=== PATIENT | female | born 2000 | race Hispanic/Latino ===

== ENCOUNTER 2018-01-26 17:13 | Emergency (ER) | payer MEDICAID, OTHER, SELFPAY ==
[2018-01-26 18:42] LABS: Bilirubin Negative (Negative); Blood, Urine Moderate (Negative); Glucose, Urine (Dipstick) Negative (Negative); Leukocyte Small (Negative); Nitrite Negative (Negative); Protein, Urine (Dipstick) Trace mg/dL (Neg-Trace); Urobilinogen 0.2 mg/dL (0.2-1.0); pH, Urine 6.5 (5.0-9.0)
[2018-01-26 18:44] LABS: Clarity CLEAR (Clear)
[2018-01-26 18:53] LABS: Bacteria/HPF 2+ HPF (None Seen); Hyaline Casts/LPF 0-3 HYALINE CAST LPF (0-3 Hyaline); WBC/HPF 21-50 HPF (0-3)
[2018-01-26 19:20] LABS: Pregnancy Test - Urine (BHCG) Negative (Negative); Pregu Control Bar Appear? YES (CONTROL BAR)
[2018-01-26 19:21] LABS: Pregu Control Background? CLEAR/WHITE (CLR/WHITE)
[2018-01-28 23:23] LABS: Chlamydia by PCR DETECTED (NotDetected); GC by PCR DETECTED (NotDetected)
--- NOTE | 2018-01-30 11:57 | EKG ---
Test Reason : SYNCOPE Blood Pressure : / mmHG Vent. Rate : 090 BPM Atrial Rate : 090 BPM P-R Int : 108 ms QRS Dur : 072 ms QT Int : 320 ms P-R-T Axes : -02 060 040 degrees QTc Int : 391 ms Sinus rhythm with short MD Otherwise normal ECG Confirmed by MATA JONES ([id number]), photo editor CARLOS COHEN ([id number]) on 01/30/2018 11:56:38 AM Referred By: Confirmed By:MATA JONES
== END 2018-01-26 19:52 | disposition home or self-care (01) ==
LOC: ERS 17:13
DX: N39.0 Urinary tract infection, site not specified (principal)
CPT/HCPCS: 81003; 81015; 81025; 87480; 87491; 87510; 87591; 87660; 93005

== ENCOUNTER 2018-10-03 08:21 | Emergency (ER) | payer SELFPAY ==
[2018-10-03] MEDS ORDERED: Ondansetron ODT 4 MG TAB ONE (08:32)
--- NOTE | 2018-10-03 09:23 | ULT ---
FEXAM: US Gallbladder RUQ CLINICAL HISTORY: Right upper quadrant abdominal pain. COMPARISON: None. FINDINGS: Liver:Normal echotexture without focal hepatic lesion. Bile ducts: No intrahepatic or extra hepatic biliary ductal dilatation is evident. The common bile me asured 4.2 mm. Gallbladder: Small mobile stones seen within the gallbladder neck Valle's sign:None Main portal vein:Patent with hepatopedal flow. Pancreas: Head and body appear normal; tail obscured by bowel gas. Right kidney: No pelvicalyceal dilatation. Right kidney measuring 10 x 4.7 x 4.9 cm in length. IMPRESSION: Cholelithiasis without sonographic evidence of acute cholecystitis
--- NOTE | 2018-10-03 09:29 | RAD ---
PORTABLE CHEST: Date: 10/03/18 HISTORY: Chest pain. HISTORY: Difficulty breathing, epigastric pain. FINDINGS: Heart size and mediastinum are within normal limits. Lungs are clear of infiltrates. No bony findings . IMPRESSION: No active intrathoracic disease. POS: [facility]
[2018-10-03 09:56] LABS: #Basophils 0.1 thou/uL (0.0-0.2); #Eosinphils 0.2 thou/uL (0.0-0.7); #Monocytes 0.7 thou/uL (0.11-0.59); #Neutrophils 7.4 thou/uL (1.40-6.50); %Eosinophils 1.5 % (0.0-10.0); %Lymphocytes 26.1 % (28.0-48.0); %Neutrophils 65.5 % (31.0-61.0); Hemoglobin 12.9 g/dL (12.0-16.0); Mean Corpuscular Volume 88.2 fL (78.0-98.0); Mean Platelet Volume 6.5 fL (7.4-10.4); Platelet Count 311 thou/uL (130-400); RBC Distribution Width 11.8 % (11.5-14.5); Red Blood Cell (RBC) Count 4.31 mill/uL (4.00-5.20); White Blood Cell (WBC) Count 11.3 thou/uL (4.8-10.8)
[2018-10-03 10:16] LABS: ALT (SGPT) 11 U/L (8-55); AST (SGOT) 18 U/L (5-34); Albumin 4.1 g/dL (3.5-5.0); Alkaline Phosphatase 89 U/L (40-150); Anion Gap 13 mmol/L (10-20); BUN (Urea Nitrogen) 11 mg/dL (7.0-18.7); Bilirubin, Total 0.2 mg/dL (0.2-1.2); Calc. Creatinine Clearance 0 mL/min (70-130); Calcium 9.4 mg/dL (7.8-10.44); Carbon Dioxide 24 mmol/L (22-29); Chloride 107 mmol/L (98-107); Estimated GFR-MDRD Greater than 90; Globulin 3.2 g/dL (2.4-3.5); Glucose 94 mg/dL (70-105); Lipase 11 U/L (8-78); Potassium 3.5 mmol/L (3.5-5.1); Protein, Total 7.3 g/dL (6.0-8.3); Sodium 140 mmol/L (136-145)
[2018-10-03 10:46] LABS: Bilirubin Negative (Negative); Blood, Urine Negative (Negative); Glucose, Urine (Dipstick) Negative (Negative); Leukocyte Negative (Negative); Nitrite Negative (Negative); Protein, Urine (Dipstick) Negative (Neg-Trace); Urobilinogen 0.2 mg/dL (0.2-1.0)
[2018-10-03 10:51] LABS: Clarity Clear (Clear); Specific Gravity, Urine 1.024 (1.002-1.036)
[2018-10-03 10:52] LABS: Pregnancy Test - Urine (BHCG) Negative (Negative); Pregu Control Background? CLEAR/WHITE (CLR/WHITE); Pregu Control Bar Appear? YES (CONTROL BAR); Specific Gravity 1.024 (1.002-1.036)
== END 2018-10-03 12:03 | disposition home or self-care (01) ==
LOC: ERS 08:21
DX: K80.20 Calculus of gallbladder without cholecystitis without obstruction (principal)
CPT/HCPCS: 36415; 71045; 76705; 80053; 81003; 81025; 83690; 84484; 85025; 93005; 96360; Q0162

== ENCOUNTER 2018-10-04 20:05 | Emergency (ER) | payer SELFPAY ==
[2018-10-04] MEDS ORDERED: Ondansetron ODT 8 MG TAB ONE (20:49)
[2018-10-04 21:05] LABS: #Basophils 0.1 thou/uL (0.0-0.2); #Eosinphils 0.1 thou/uL (0.0-0.7); #Lymphocytes 1.8 thou/uL (1.20-3.40); #Monocytes 0.5 thou/uL (0.11-0.59); #Neutrophils 5.7 thou/uL (1.40-6.50); %Eosinophils 0.8 % (0.0-10.0); %Lymphocytes 22.4 % (28.0-48.0); %Monocytes 6.6 % (0.0-4.0); %Neutrophils 69.3 % (31.0-61.0); Hemoglobin 12.5 g/dL (12.0-16.0); Mean Corpuscular Hemoglobin 29.7 pg (25.0-35.0); Mean Corpuscular Volume 87.4 fL (78.0-98.0); Mean Platelet Volume 6.3 fL (7.4-10.4); Platelet Count 282 thou/uL (130-400); RBC Distribution Width 11.6 % (11.5-14.5); Red Blood Cell (RBC) Count 4.21 mill/uL (4.00-5.20); White Blood Cell (WBC) Count 8.2 thou/uL (4.8-10.8)
[2018-10-04 21:27] LABS: ALT (SGPT) 11 U/L (8-55); AST (SGOT) 15 U/L (5-34); Albumin 3.9 g/dL (3.5-5.0); Alkaline Phosphatase 79 U/L (40-150); Anion Gap 10 mmol/L (10-20); BUN (Urea Nitrogen) 6 mg/dL (7.0-18.7); Bilirubin, Total 0.4 mg/dL (0.2-1.2); Calc. Creatinine Clearance 0 mL/min (70-130); Calcium 9.1 mg/dL (7.8-10.44); Carbon Dioxide 25 mmol/L (22-29); Chloride 104 mmol/L (98-107); Estimated GFR-MDRD Greater than 90; Globulin 3.3 g/dL (2.4-3.5); Glucose 93 mg/dL (70-105); Lipase 6 U/L (8-78); Potassium 3.7 mmol/L (3.5-5.1); Protein, Total 7.2 g/dL (6.0-8.3); Sodium 135 mmol/L (136-145)
== END 2018-10-04 21:48 | disposition home or self-care (01) ==
LOC: ERS 20:05
DX: R11.2 Nausea with vomiting, unspecified (principal); R19.7 Diarrhea, unspecified; Z79.899 Other long term (current) drug therapy
CPT/HCPCS: 36415; 80053; 83690; 85025; 99283

== ENCOUNTER 2019-05-16 09:53 | Emergency (ER) | payer BC, SELFPAY ==
[2019-05-16 10:45] LABS: #Basophils 0.1 thou/uL (0.0-0.2); #Eosinphils 0.1 thou/uL (0.0-0.7); #Monocytes 0.5 thou/uL (0.11-0.59); #Neutrophils 8.5 thou/uL (1.40-6.50); %Basophils 0.7 % (0.0-1.0); %Eosinophils 0.6 % (0.0-10.0); %Lymphocytes 17.9 % (28.0-48.0); %Monocytes 4.1 % (0.0-4.0); %Neutrophils 76.7 % (31.0-61.0); Hemoglobin 13.7 g/dL (12.0-16.0); Mean Corpuscular Hemoglobin 29.1 pg (25.0-35.0); Mean Corpuscular Volume 88.2 fL (78.0-98.0); Mean Platelet Volume 6.7 fL (7.4-10.4); Platelet Count 291 thou/uL (130-400); RBC Distribution Width 11.9 % (11.5-14.5); White Blood Cell (WBC) Count 11.1 thou/uL (4.8-10.8)
[2019-05-16] MEDS ORDERED: Lidocaine Viscous Sol 2% 15 ml UD Cup ONE (10:53)
[2019-05-16] MEDS ORDERED: Mag-Al 1200 mg/1200 mg/30 ML UDCUP ONE (10:53)
[2019-05-16 11:00] LABS: ALT (SGPT) 13 U/L (8-55); AST (SGOT) 12 U/L (5-34); Albumin 4.3 g/dL (3.5-5.0); Alkaline Phosphatase 87 U/L (40-100); Anion Gap 12 mmol/L (10-20); BUN (Urea Nitrogen) 8 mg/dL (7.0-18.7); Bilirubin, Total 0.3 mg/dL (0.2-1.2); Calc. Creatinine Clearance 0 mL/min (70-130); Calcium 9.4 mg/dL (7.8-10.44); Carbon Dioxide 26 mmol/L (22-29); Chloride 106 mmol/L (98-107); Estimated GFR-MDRD Greater than 90; Globulin 3.1 g/dL (2.4-3.5); Glucose 100 mg/dL (70-105); Lipase 11 U/L (8-78); Potassium 4.2 mmol/L (3.5-5.1); Protein, Total 7.4 g/dL (6.0-8.3); Sodium 140 mmol/L (136-145)
[2019-05-16 11:15] LABS: Bilirubin Negative (Negative); Blood, Urine Negative (Negative); Clarity Clear (Clear); Glucose, Urine (Dipstick) Normal (Negative); Leukocyte Negative Leu/uL (Negative); Nitrite Negative (Negative); Protein, Urine (Dipstick) Negative (Neg-Trace); Urobilinogen Normal mg/dL (Less than 2)
[2019-05-16 11:16] LABS: Pregnancy Test - Urine (BHCG) Negative (Negative); Pregu Control Background? CLEAR/WHITE (CLR/WHITE); Pregu Control Bar Appear? YES (CONTROL BAR)
== END 2019-05-16 13:07 | disposition home or self-care (01) ==
LOC: ERS 09:53
DX: R10.13 Epigastric pain (principal); N11.0 Nonobstructive reflux-associated chronic pyelonephritis
CPT/HCPCS: 36415; 80053; 81003; 81025; 83690; 85025; 99284

== ENCOUNTER 2019-06-12 17:04 | Emergency (ER) | payer SELFPAY ==
[2019-06-12 18:08] LABS: #Lymphocytes 1.8 thou/uL (1.20-3.40); #Monocytes 0.6 thou/uL (0.11-0.59); #Neutrophils 12.5 thou/uL (1.40-6.50); %Basophils 0.3 % (0.0-1.0); %Eosinophils 0.2 % (0.0-10.0); %Lymphocytes 12.1 % (28.0-48.0); %Monocytes 3.8 % (0.0-4.0); %Neutrophils 83.6 % (31.0-61.0); Hemoglobin 13.7 g/dL (12.0-16.0); Mean Corpuscular HGB CONC 33.7 g/dL (32.0-36.0); Mean Corpuscular Hemoglobin 29.2 pg (25.0-35.0); Mean Corpuscular Volume 86.7 fL (78.0-98.0); Mean Platelet Volume 6.6 fL (7.4-10.4); Platelet Count 347 thou/uL (130-400); RBC Distribution Width 11.6 % (11.5-14.5); White Blood Cell (WBC) Count 14.9 thou/uL (4.8-10.8)
[2019-06-12 18:27] LABS: Acetaminophen Less than 6.0 mcg/mL (10.0-30.0); Alcohol Less than 10 mg/dL (Less than 10); Salicylate Less than 8.0 mg/dL (15.0-30.0)
[2019-06-12 18:29] LABS: ALT (SGPT) 17 U/L (8-55); AST (SGOT) 17 U/L (5-34); Albumin 4.5 g/dL (3.5-5.0); Alkaline Phosphatase 87 U/L (40-100); Anion Gap 13 mmol/L (10-20); BUN (Urea Nitrogen) 8 mg/dL (7.0-18.7); Bilirubin, Total 0.5 mg/dL (0.2-1.2); CK (CPK) 129 U/L (29-168); Calc. Creatinine Clearance 0 mL/min (70-130); Calcium 9.9 mg/dL (7.8-10.44); Carbon Dioxide 25 mmol/L (22-29); Chloride 104 mmol/L (98-107); Estimated GFR-MDRD Greater than 90; Globulin 3.8 g/dL (2.4-3.5); Glucose 100 mg/dL (70-105); Potassium 3.7 mmol/L (3.5-5.1); Protein, Total 8.3 g/dL (6.0-8.3); Sodium 138 mmol/L (136-145)
[2019-06-12 19:41] LABS: Bilirubin Negative (Negative); Blood, Urine Negative (Negative); Clarity Clear (Clear); Glucose, Urine (Dipstick) Normal (Negative); Leukocyte Negative Leu/uL (Negative); Nitrite Negative (Negative); Protein, Urine (Dipstick) Negative (Neg-Trace); Urobilinogen Normal mg/dL (Less than 2)
[2019-06-12 19:42] LABS: Pregnancy Test - Urine (BHCG) Negative (Negative); Pregu Control Background? CLEAR/WHITE (CLR/WHITE); Pregu Control Bar Appear? YES (CONTROL BAR)
[2019-06-12 19:51] LABS: Amphetamine Not Detected (NotDetected); Barbiturates Screen Not Detected (NotDetected); Benzodiazepine Screen Not Detected (NotDetected); Cocaine Metabolite Screen Not Detected (NotDetected); Medtox Control Line Valid? VALID (VALID); Medtox Reader # READER 1; Methadone Not Detected (NotDetected); Methamphetamine Not Detected (NotDetected); Opiate Screen Not Detected (NotDetected); Oxycodone Screen Not Detected (NotDetected); Phencyclidine (PCP) Not Detected (NotDetected); THC/Cannabinoid Screen Detected (NotDetected); Tricyclic Screen Not Detected (NotDetected)
== END 2019-06-13 00:18 | disposition home or self-care (01) ==
LOC: ERS 17:04
DX: F43.9 Reaction to severe stress, unspecified (principal)
CPT/HCPCS: 36415; 80053; 80306; 80307; 81003; 81025; 82550; 84443; 85025; 93005

== ENCOUNTER 2019-10-11 11:21 | Emergency (ER) | payer BC ==
[2019-10-11 12:00] LABS: #Basophils 0.1 thou/uL (0.0-0.2); #Eosinphils 0.1 thou/uL (0.0-0.7); #Lymphocytes 2.2 thou/uL (1.20-3.40); #Monocytes 0.4 thou/uL (0.11-0.59); #Neutrophils 7.7 thou/uL (1.40-6.50); %Basophils 0.8 % (0.0-1.0); %Monocytes 3.9 % (0.0-10.0); %Neutrophils 73.3 % (42.0-75.0); Hemoglobin 13.7 g/dL (12.0-16.0); Mean Corpuscular HGB CONC 33.8 g/dL (32.0-36.0); Mean Corpuscular Hemoglobin 29.6 pg (27.0-31.0); Mean Corpuscular Volume 87.5 fL (78.0-98.0); Mean Platelet Volume 6.8 fL (7.4-10.4); Platelet Count 305 thou/uL (130-400); RBC Distribution Width 12.3 % (11.5-14.5); Red Blood Cell (RBC) Count 4.63 mill/uL (4.20-5.40); White Blood Cell (WBC) Count 10.4 thou/uL (4.8-10.8)
[2019-10-11 12:12] LABS: BHCG - Serum Negative (NEGATIVE); Pregs Control Background? CLEAR/WHITE (CLR/WHITE); Pregs Control Bar Appear? YES (CONTROL BAR)
[2019-10-11 12:14] LABS: ALT (SGPT) 21 U/L (8-55); AST (SGOT) 15 U/L (5-34); Alkaline Phosphatase 94 U/L (40-110); Anion Gap 10 mmol/L (10-20); BUN (Urea Nitrogen) 8 mg/dL (7.0-18.7); Bilirubin, Total 0.3 mg/dL (0.2-1.2); Calc. Creatinine Clearance 0 mL/min (70-130); Calcium 9.6 mg/dL (7.8-10.44); Carbon Dioxide 27 mmol/L (22-29); Chloride 105 mmol/L (98-107); Estimated GFR-MDRD Greater than 90; Globulin 3.6 g/dL (2.4-3.5); Glucose 102 mg/dL (70-105); Lipase 10 U/L (8-78); Potassium 5.1 mmol/L (3.5-5.1); Protein, Total 7.6 g/dL (6.0-8.3); Sodium 137 mmol/L (136-145)
--- NOTE | 2019-10-11 12:19 | ULT ---
EXAM: US Gallbladder RUQ CLINICAL HISTORY: Right upper quadrant pain. COMPARISON: 10/03/2018 FINDINGS: Pancreas: Obscured by bowel gas Liver:Normal hepatic parenchymal echotexture. No hepatic masses or intrahepatic biliary dilatation. T he contour of the hepatic margin is maintained. Right hepatic lobe: 15.8 cm Gallbladder: Echogenic focus with shadowing measuring at least 1.9 cm. Gallbladder wall is not thicke [place]. No pericholecystic fluid. Valle's sign:Negative Portal Vein: Patent. Appropriate directional flow Bile ducts: Common bile duct diameter 0.4 cm Right kidney: No hydronephrosis. Right kidney measures 3.7 x 5.1 x 10.0 cm in length. IMPRESSION: 1. Sonographic evidence of cholelithiasis without sonographic evidence of cholecystitis.
[2019-10-11 12:37] LABS: Bilirubin Negative (Negative); Blood, Urine Negative (Negative); Clarity Turbid (Clear); Glucose, Urine (Dipstick) Normal (Negative); Leukocyte 75 Leu/uL (Negative); Nitrite Negative (Negative); Protein, Urine (Dipstick) Negative (Neg-Trace); RBC/HPF 0-3 HPF (0-3); Urobilinogen Normal mg/dL (Less than 2)
[2019-10-11 12:44] LABS: Bacteria/HPF Rare-Few HPF (None Seen)
== END 2019-10-11 12:38 | disposition home or self-care (01) ==
LOC: ERS 11:21
DX: K80.80 Other cholelithiasis without obstruction (principal)
CPT/HCPCS: 36415; 76705; 80053; 81003; 81015; 83690; 84703; 85025

== ENCOUNTER 2020-10-11 06:04 | Emergency (ER) | payer BC ==
[2020-10-11] MEDS ORDERED: Haloperidol Lactate 5 MG/ML VIAL ONE (07:07)
[2020-10-11 07:14] LABS: Bacteria/HPF None Seen HPF (None Seen); Bilirubin Negative (Negative); Blood, Urine Trace (Negative); Clarity Clear (Clear); Glucose, Urine (Dipstick) Normal (Negative); Ketone, Urine Negative (Negative); Leukocyte Negative Leu/uL (Negative); Nitrite Negative (Negative); Protein, Urine (Dipstick) 30 mg/dL (Neg-Trace); RBC/HPF 0-3 HPF (0-3); Specific Gravity, Urine 1.032 (1.002-1.036); Urobilinogen Normal mg/dL (Less than 2); WBC/HPF 0-3 HPF (0-3); pH, Urine 6.5 (5.0-9.0)
[2020-10-11 07:15] LABS: Pregnancy Test - Urine (BHCG) Negative (Negative); Pregu Control Background? CLEAR/WHITE (CLR/WHITE); Pregu Control Bar Appear? YES (CONTROL BAR); Specific Gravity 1.032 (1.002-1.036)
[2020-10-11 07:17] LABS: ALT (SGPT) 17 U/L (8-55); AST (SGOT) 24 U/L (5-34); Alkaline Phosphatase 97 U/L (40-110); Anion Gap 16 mmol/L (10-20); BUN (Urea Nitrogen) 10 mg/dL (7.0-18.7); Bilirubin, Total 0.2 mg/dL (0.2-1.2); Calc. Creatinine Clearance 0 mL/min (70-130); Calcium 9.1 mg/dL (7.8-10.44); Carbon Dioxide 21 mmol/L (22-29); Chloride 107 mmol/L (98-107); Globulin 4.2 g/dL (2.4-3.5); Glucose 104 mg/dL (70-105); Potassium 5.1 mmol/L (3.5-5.1); Protein, Total 8.2 g/dL (6.0-8.3); Sodium 139 mmol/L (136-145)
[2020-10-11 07:50] LABS: #Basophils 0.1 thou/uL (0.0-0.2); #Eosinphils 0.1 thou/uL (0.0-0.7); #Monocytes 0.5 thou/uL (0.11-0.59); #Neutrophils 7.6 thou/uL (1.40-6.50); %Basophils 0.7 % (0.0-1.0); %Eosinophils 0.9 % (0.0-10.0); %Lymphocytes 19.3 % (21.0-51.0); %Monocytes 4.6 % (0.0-10.0); %Neutrophils 74.6 % (42.0-75.0); Hemoglobin 12.4 g/dL (12.0-16.0); Mean Corpuscular Hemoglobin 28.9 pg (27.0-31.0); Mean Corpuscular Volume 87.5 fL (78.0-98.0); Mean Platelet Volume 6.8 fL (7.4-10.4); Platelet Count 293 thou/uL (130-400); RBC Distribution Width 12.3 % (11.5-14.5); Red Blood Cell (RBC) Count 4.29 mill/uL (4.20-5.40); White Blood Cell (WBC) Count 10.2 thou/uL (4.8-10.8)
== END 2020-10-11 08:25 | disposition home or self-care (01) ==
LOC: ERS 06:04
DX: R11.2 Nausea with vomiting, unspecified (principal); K80.20 Calculus of gallbladder without cholecystitis without obstruction; F12.90 Cannabis use, unspecified, uncomplicated
CPT/HCPCS: 36415; 76705; 80053; 81003; 81015; 81025; 85025; 96374; J1630

== ENCOUNTER 2021-12-03 04:01 | Emergency (ER) | payer BC | END 2021-12-03 04:27 | LOC: ERS 04:01 | DX: Z02.89 Encounter for other administrative examinations (principal); T40.715A Adverse effect of cannabis, initial encounter | CPT/HCPCS: 99284 ==

== ENCOUNTER 2025-04-18 12:32 | Emergency (ER) | payer SELFPAY ==
[2025-04-18] MEDS ORDERED: Ondansetron PF 4 MG/2 ML Vial ONE (14:47)
[2025-04-18 14:59] LABS: #Basophils 0.05 10x3/uL (0.0-0.2); #Eosinophils Less than 0.03 10x3/uL (0.0-0.7); #Monocytes 0.43 10x3/uL (0.11-0.59); #Neutrophils 8.69 10x3/uL (1.40-6.50); %Basophils 0.5 % (0.0-1.0); %Eosinophils 0.2 % (0.0-10.0); %Lymphocytes 16.0 % (21.0-51.0); %Monocytes 3.9 % (0.0-10.0); %Neutrophils 78.8 % (42.0-75.0); Hematocrit 39.4 % (36.0-47.0); Hemoglobin 12.5 g/dL (12.0-16.0); Mean Corpuscular Hemoglobin 27.5 pg (27.0-31.0); Mean Corpuscular Volume 86.8 fL (78.0-98.0); Platelet Count 295 10x3/uL (130-400); Red Blood Cell (RBC) Count 4.54 mill/uL (4.20-5.40); White Blood Cell (WBC) Count 11.02 10x3/uL (4.8-10.8)
[2025-04-18 15:28] LABS: ALT (SGPT) 21 U/L (Less than 34); AST (SGOT) 25 U/L (11-34); Albumin 3.8 g/dL (3.1-4.5); Alkaline Phosphatase 93 U/L (40-110); Anion Gap 10 mmol/L (10-20); BUN (Urea Nitrogen) 9 mg/dL (7.0-18.7); Bilirubin, Total 0.3 mg/dL (0.3-1.2); Calc. Creatinine Clearance 0 mL/min (70-130); Calcium 9.2 mg/dL (7.8-10.44); Carbon Dioxide 27 mmol/L (22-29); Chloride 104 mmol/L (98-107); Globulin 4.1 g/dL (2.4-3.5); Glucose 103 mg/dL (70-105); Lipase 15 U/L (8-78); Potassium 4.0 mmol/L (3.5-5.1); Sodium 137 mmol/L (136-145)
[2025-04-18 18:18] LABS: CAUTI Indications for Culture Acute Hematuria; Glucose, Urine (Dipstick) Normal (Negative); Leukocyte Negative Leu/uL (Negative); Protein, Urine (Dipstick) Negative (Neg-Trace); RBC/HPF 0-3 HPF (0-3); Specific Gravity, Urine 1.010 (1.002-1.036); WBC/HPF 0-3 HPF (0-3)
[2025-04-18 18:19] LABS: Bacteria/HPF 1+ HPF (None Seen)
[2025-04-18 18:20] LABS: Urine Culture Reflex No No
[2025-04-18 18:30] LABS: Pregu Control Background? CLEAR/WHITE (CLR/WHITE); Pregu Control Bar Appear? YES (CONTROL BAR)
[2025-04-18 18:31] LABS: Pregnancy Test - Urine (BHCG) Negative (Negative)
== END 2025-04-18 18:56 | disposition home or self-care (01) ==
LOC: ERS 12:32
DX: K80.20 Calculus of gallbladder without cholecystitis without obstruction (principal)
CPT/HCPCS: 76705; 80053; 81001; 81025; 83690; 85025; 96374; 96375; J2270